=== PATIENT | female | born 1930 | race Caucasian/White ===

== ENCOUNTER 2017-08-01 01:22 | Inpatient (IN) | payer OTHER ==
[~2017-08-01] VITALS: Ht 162.6 cm; Wt 54.4 kg
[~2017-08-01 01:22] MED LIST: CARAFATE1 G PO; CIPRO500 MG PO; FLAGYL500MG PO; HYZAAR 100-121 UDTAB; INTESTINEX680 MG PO; PEPCID40 MG PO; PROTONIX40 MG PO; ZANTAC150 MG PO
[2017-08-07] MEDS ORDERED: SIMVASTATIN20 MG PO (11:00)
[2017-08-07] MEDS ORDERED: LISINOPRIL10 MG PO (11:00)
[2017-08-07] MEDS ORDERED: ASA325 M1 PO (11:01)
== END 2017-08-07 14:21 | DRG 66 ==
LOC: ER 01:22 → SEC-K 11:35 → MEDI 08-03 14:44
PROC: B030ZZZ Magnetic Resonance Imaging (MRI) of Brain (ICD-10-PCS; principal; 2017-08-01)
PROC: B246ZZZ Ultrasonography of Right and Left Heart (ICD-10-PCS; 2017-08-01)
PROC: B345ZZZ Ultrasonography of Bilateral Common Carotid Arteries (ICD-10-PCS; 2017-08-01)
PROC: B348ZZZ Ultrasonography of Bilateral Internal Carotid Arteries (ICD-10-PCS; 2017-08-01)
PROC: BW28ZZZ Computerized Tomography (CT Scan) of Head (ICD-10-PCS; 2017-08-01)
PROC: 4A12X4Z Monitoring of Cardiac Electrical Activity, External Approach (ICD-10-PCS; 2017-08-03)
DX: I63.532 Cerebral infarction due to unspecified occlusion or stenosis of left posterior cerebral artery (principal); R47.01 Aphasia; I69.391 Dysphagia following cerebral infarction; R13.19 Other dysphagia; I10 Essential (primary) hypertension; I34.0 Nonrheumatic mitral (valve) insufficiency; K29.60 Other gastritis without bleeding; R47.81 Slurred speech
CPT/HCPCS: 70553

== ENCOUNTER 2017-08-31 03:27 | Emergency (ER) | payer OTHER ==
[~2017-08-31] VITALS: Ht 160 cm; Wt 51.3 kg
[~2017-08-31 03:27] MED LIST changes: +ASA325 M1 PO; +LISINOPRIL10 MG PO; +SIMVASTATIN20 MG PO
[2017-08-31] MEDS ORDERED: ASA-EC81 MG (03:45)
== END 2017-08-31 08:21 | disposition home or self-care (01) ==
LOC: ER 03:27
DX: S00.83XA Contusion of other part of head, initial encounter (principal); S80.01XA Contusion of right knee, initial encounter; S19.89XA Other specified injuries of other specified part of neck, initial encounter; R42 Dizziness and giddiness; K52.89 Other specified noninfective gastroenteritis and colitis; W18.09XA Striking against other object with subsequent fall, initial encounter; Y93.E8 Activity, other personal hygiene; Y92.012 Bathroom of single-family (private) house as the place of occurrence of the external cause; Y99.8 Other external cause status

== ENCOUNTER 2017-11-20 08:42 | Outpatient (CLI) | payer OTHER ==
[~2017-11-20 08:42] MED LIST changes: +ASA-EC81 MG
== END 2017-11-20 08:52 | disposition home or self-care (01) ==
LOC: MRI 08:42
DX: S09.90XA Unspecified injury of head, initial encounter (principal)
CPT/HCPCS: 70551

== ENCOUNTER 2019-06-16 08:05 | Inpatient (IN) | payer OTHER ==
[~2019-06-16] VITALS: Ht 162.6 cm; Wt 48.5 kg
[2019-06-16] MEDS ORDERED: LOSARTAN POTASS50 MG (08:23)
[2019-06-18] MEDS ORDERED: OMEGA-3 ACID ETH1 GM (12:16)
[2019-06-18] MEDS ORDERED: MAGNESIUM400 MG (12:17)
[2019-06-18] MEDS ORDERED: VITAMIN D3125 MC1 (12:17)
[2019-06-27] MEDS ORDERED: INTEGRA PLUS C1 EACH PO (11:04)
[2019-06-27] MEDS ORDERED: LOSARTAN POTASS50 MG PO (11:04)
[2019-06-27] MEDS ORDERED: FOLIC ACID1 MG PO (11:16)
[2019-06-27] MEDS ORDERED: ULTRAM50 MG PO (11:17)
[2019-06-27] MEDS ORDERED: Megace PO (11:17)
== END 2019-06-27 12:22 | disposition home or self-care (01) | DRG 378 ==
LOC: ER 08:05 → SURH 13:42
PROVIDERS: ADMIT Internal Medicine
PROC: BW21ZZZ Computerized Tomography (CT Scan) of Abdomen and Pelvis (ICD-10-PCS; principal; 2019-06-16)
PROC: BW21Y0Z Computerized Tomography (CT Scan) of Abdomen and Pelvis using Other Contrast, Unenhanced and Enhanced (ICD-10-PCS; 2019-06-16)
PROC: B246ZZZ Ultrasonography of Right and Left Heart (ICD-10-PCS; 2019-06-20)
PROC: 30233N1 Transfusion of Nonautologous Red Blood Cells into Peripheral Vein, Percutaneous Approach (ICD-10-PCS; 2019-06-20)
PROC: CD271ZZ Tomographic (Tomo) Nuclear Medicine Imaging of Gastrointestinal Tract using Technetium 99m (Tc-99m) (ICD-10-PCS; 2019-06-24)
PROC: 0DJD8ZZ Inspection of Lower Intestinal Tract, Via Natural or Artificial Opening Endoscopic (ICD-10-PCS; 2019-06-27)
DX: K55.21 Angiodysplasia of colon with hemorrhage (principal); S37.011A Minor contusion of right kidney, initial encounter; K57.31 Diverticulosis of large intestine without perforation or abscess with bleeding; D50.8 Other iron deficiency anemias; I11.9 Hypertensive heart disease without heart failure; I07.1 Rheumatic tricuspid insufficiency